=== PATIENT | female | born 1980 | race Caucasian/White ===

== ENCOUNTER 2018-05-23 11:46 | Emergency (ER) | payer MEDICAID, SELFPAY ==
[2018-05-23] VITALS (17 sets, daily range): BP systolic 115–162; BP diastolic 69–87; PULSE 75–101; RESP 16–18; TEMP 36.6–37; O2SAT 97–99
[2018-05-23] MEDS: Acetaminophen 500 MG TAB 1000 MG PO (12:06)
[2018-05-23] MEDS: Albuterol/Ipratropium 3 ML UPD VIAL 9 ML UPD (12:07)
--- NOTE | 2018-05-23 12:08 | ED.GENADUL ---
Disposition Clinical Impression: Bronchitis, Disposition: HOME Condition: Good Instructions: Acute Bronchitis (ED), (ED) Additional Instructions: Please continue to take your home albuterol. You have been given a large dose of steroids here and you will not need additional steroids at home at this time. We will give you a prescription for DuoNeb solution for a nebulizer, please use these every 6 hours with your home nebulizer that he will be requiring from a friend of family. If you are unable to get one, please discuss this with your primary care provider. If you notice any worsening of your symptoms, or any new symptoms such as vomiting, diarrhea, fever, chills, shortness of breath, chest pain, numbness, weakness, or fainting , please return immediately to the emergency department for reevaluation. Please follow up with your primary care provider as soon as possible for reassessment and reevaluation. As always, it was a pleasure participating in your medical care today. Please also begin taking a vitamin. Prescriptions: Albuterol/Ipratropium [Duoneb Updraft] 3 ml IH Q6H #30 vial Referrals: CORINA MCNAMARA [Primary Care Provider] - Medical Decision Making - Medical Decision Making This is a 38-year-old female with history of tobacco abuse hypertension asthma who presents with cough for the last few weeks, particularly worsening over the last few days. She has been on azithromycin and her inhaler at home with no improvement. Physical exam demonstrates normal oxygen saturations normal heart rate. Some reproducible chest pain on exam. We will evaluate for potential respiratory cause of her symptomatology/pneumonia/bronchitis, as well as potential cardiac or blood clot etiology. Patient's laboratory workup has returned benign. No evidence of leukocytosis, no fever, no hypoxemia, no tachycardia. The patient shows no evidence of significant systemic infection. WBC count is normal. D-dimer is within normal limits, troponin is normal. EKG is benign. After breathing treatments and Solu-Medrol the patient is feeling much better. Her test has come back positive which was unexpected. The patient states that all of her chest pain is completely gone, her cough is improved, and she has no chest tightness whatsoever. I feel that the patient's signs and symptoms are consistent with chronic bronchitis and asthma, we have recommended continuation of her home albuterol. I will give her a prescription for DuoNeb inhalers, and she is confident that she will be able to get a nebulizer from a friend at this time and does not need a prescription for one. Additionally I did discuss getting a chest x-ray with her current status, also discussed the low risk of radiation damage however it is still some measurable radiation to the fetus, and the patient has made it clear that she does not want the x-ray at this time and would like to hold off. She will be calling her primary care provider within the next 30 minutes for close follow-up this week. We discussed red flags which to return the patient understands. With a full course of antibiotics already on board I do not think that she necessarily needs additional ones. With no crackles noted on exam, tachycardia, hypoxemia, or any signs of respiratory distress I feel that her symptoms most likely secondary to chronic bronchitis with her smoking rather than an infectious etiology. We discussed red flags which to return the patient understands. I have extensively reviewed the treatment plan and discharge instructions with the patient. I have addressed all patient concerns at this time. The patient was made aware of what symptoms to monitor for that would warrant a return to the emergency department. Discussed the plan with the patient, they demonstrate verbal understanding and agreement with our assessment and plan at this time. EK:54 AM Rate 86, intervals normal, sinus rhythm, no ST elevations or depression, no T wave inversions except for small inversion in lead III. No Q waves History of Present Illness - General Chief complaint: SOB Stated complaint: SOB Time Seen by Provider: 05/23/18 11:59 - History of Present Illness Initial comments: This is a 38-year-old female with a past medical history of obesity, diabetes, tobacco use, questionable TIA, asthma, and a family history of strokes, MIs, and blood clots, who presents today for evaluation of shortness of breath. Patient states that she chronically has short of breath every year, which is made worse by the black mold in her house that she is trying to get removed in taking care of. She states that she has a chronic cough at all times throughout the year, however over the last few weeks it is gotten slightly worse. She was given azithromycin, and recommended to continue taking her inhalers at home, however in spite of the antibiotic and inhaler treatment over the last 1-2 weeks she has had no improvement. She has not been on any steroids recently. She presents today is in the last 72 hours her symptoms have gotten notably worse. Cough is continued and worsened. It is nonproductive with no hemoptysis or purulent sputum. She does admit to some associated chest pain worse with coughing and movement. The pain is primarily located in her chest, notably on the right. She does have some associated mild left arm pain which she describes as absolutely minimal. She has minimal pain with deep inspiration. She denies any significant exertional pain. Denies PE risk factors such as recent long car rides, immobilization, recent surgery, prior history of DVT or PE, exogenous estrogen and smoking, hemoptysis, history of cancer. The patient denies any fever or chills at this time. The patient has no other complaints at this time. She denies any recent surgeries, or IV or illicit drug use. - Related Data Albuterol/Ipratropium [Duoneb Updraft] 3 ml IH Q6H #30 vial 05/23/18 Review of Systems Other: 10 point review of systems was performed, pertinent positives and negatives are noted in the history of present illness. General Exam - Other Other exam information: 1.Const: Well-nourished, Well-developed, appearing stated age 2.Eyes: PERRL, no conjunctival injection, and symmetrical lids. 3.ENT: Atraumatic external nose and ears. Moist MM. Neck: Symmetric, trachea midline, No thyromegaly. 4.CVS: +S1/S2, No murmurs or gallops. Peripheral pulses 2+ and equal in all extremities. Brisk capillary refill in all extremities. Reproducible chest pain noted over the anterior chest wall bilaterally. No signs of trauma. 5.RESP: Unlabored respiratory effort. Clear to auscultation bilaterally. No wheezes rales or rhonchi however she does have reduced breath sounds throughout. 6.GI: Soft, Nontender/Nondistended, No hepatosplenomegaly. No guarding or rebound. 7.MSK: Normocephalic/Atraumatic, Extremities w/o deformity or ttp No cyanosis or clubbing, Normal movement of all extremities 8.Skin: Warm, Dry. No rashes or lesions. 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 Sensation grossly intact, no focal neurologic deficits. 10.Psych: (AAO) x3. Appropriate mood and affect Course Vital Signs - 24 hr 05/23/18 05/23/18 05/23/18 11:52 12:05 12:07 Temperature 36.7 C Pulse 85 82 82 Respiratory 18 18 18 Rate Blood Pressure 115/82 115/69 Pulse Oximetry 99 98 98
[2018-05-23] MEDS: Ketorolac 30 MG/ML VIAL IM (12:39)
[2018-05-23] MEDS: methylPREDNISolone SUCC 125 MG VIAL IVP (12:42)
[2018-05-23 12:56] LABS: BE (Venous) -0.4 mmol/L (-3-3); HCO3 (Venous) 25 mmol/L (22-28); O2 Sat (Venous) 74 % (70-80); TCO2 (Venous) 23 mmol/L (22-29); pCO2 (Venous) 43 mm/Hg (34-47); pH (Venous) 7.37 (7.32-7.43); pO2 (Venous) 40 mm/Hg (28-44)
[2018-05-23 13:01] LABS: Abs Immature Grans 0.03 k/cumm (0.0-0.09); Absolute Basophil Count 0.04 k/cumm (0.0-0.2); Absolute Eosinophil Count 0.11 k/cumm (0.0-0.7); Absolute Lymphocyte Count 2.47 k/cumm (1.2-3.4); Absolute Monocyte Count 0.61 k/cumm (0.11-0.7); Absolute Neutrophil Count 5.65 k/cumm (1.2-6.7); Basophils % 0.4; Eosinophils % 1.2; HCT 38.4 % (36.0-46.0); HGB 12.9 g/dL (12.0-15.5); Immature Grans % 0.3; Lymphocytes % 27.7; Mean Corp. HGB Concentration 33.6 g/dL (32.0-36.0); Mean Corpuscular Hemoglobin 31.7 pg (27.0-33.0); Mean Corpuscular Volume 94.3 fL (80-95); Mean Platelet Volume 9.9 fL (8.0-11.0); Monocytes % 6.8; Neutrophils % 63.6; Platelet Count 218 x1000/uL (130-400); RBC 4.07 m/cumm (4.00-5.20); RBC Distribution Width 13.6 % (11.7-14.6); White Blood Cell Count 8.91 k/cumm (4.4-10.8)
[2018-05-23 13:20] LABS: ALT 24 U/L (12-78); AST 10 U/L (15-37); Albumin 3.4 g/dL (3.4-5.0); Alkaline Phosphatase 82 U/L (46-116); Anion Gap 9.7 mmol/L (3-11); BUN 13 mg/dL (7-18); Bilirubin, Total 0.5 mg/dL (0.2-1.0); CO2 24.3 mmol/L (21.0-32.0); CREATININE 0.89 mg/dL (0.55-1.02); Calcium 8.8 mg/dL (8.5-10.1); Chloride 101 mmol/L (98-107); Glucose 181 mg/dL (70-100); Potassium 3.5 mmol/L (3.5-5.1); Sodium 135 mmol/L (136-145); Total Protein 7.2 g/dL (6.4-8.2)
[2018-05-23 13:23] LABS: Troponin I < 0.02 ng/mL (0.00-0.06)
[2018-05-23 13:24] LABS: D-Dimer 203 ng/mlFEU (<500)
[2018-05-23 13:43] LABS: HCG Quant, Pregnancy 17924 mIU/mL (1-3)
== END 2018-05-23 14:19 | disposition home or self-care (01) ==
PROVIDERS: Emergency Provider Student in an Organized Health Care Education/Training Program; PCP Internal Medicine
DX: J44.0 Chronic obstructive pulmonary disease with (acute) lower respiratory infection (principal); J45.909 Unspecified asthma, uncomplicated; J20.9 Acute bronchitis, unspecified; Z33.1 Pregnant state, incidental; O99.331 Smoking (tobacco) complicating pregnancy, first trimester; Z3A.00 Weeks of gestation of pregnancy not specified; O24.111 Pre-existing type 2 diabetes mellitus, in pregnancy, first trimester
CPT/HCPCS: 36415; 80053; 81025; 82805; 93005; 94640; 96372; 96374; 99284; 84484; 84702; 84703; 85025; 85379; 93010; 99285; J1885; J2930; J7620